=== PATIENT | male | born 1940 | race Caucasian/White ===

== ENCOUNTER 2019-03-11 15:59 | Inpatient (IN) ==
[2019-03-11] MEDS ORDERED: GLUCOSE 10 TABS/TUBE PO PRN (22:45)
[2019-03-11] MEDS ORDERED: GLUCAGON FOR INJ 1 MG VIAL SQ PRN (22:45)
[2019-03-11] MEDS ORDERED: GLUCOSE 40% GEL 15 GM TUBE PO PRN (22:45)
[2019-03-11] MEDS ORDERED: DEXTROSE 50% 50 ML SYRINGE IV PRN (22:45)
[2019-03-11] MEDS ORDERED: CARBOHYDRATES FOR HYPOGLYCEMIA PO PRN (22:45)
[2019-03-11] MEDS ORDERED: ONDANSETRON INJ 2 MG/ML 2 ML VIAL IV PRN (22:50)
[2019-03-11] MEDS ORDERED: ALBUT/IPRATROP 3MG/0.5MG NEB 3 ML VIAL NEB PRN (22:50)
[2019-03-11] MEDS ORDERED: ACETAMINOPHEN 325 MG TAB PO PRN (22:50)
[2019-03-12] MEDS: INSULIN ASPART 100 UNITS/ML 3 ML PEN SC SCH ×5 (00:14→21:11)
--- NOTE | 2019-03-12 01:30 | History & Physical Report ---
Date of Service Patient was seen and examined on March 11, 2019 this is a late entry (after midnight). March 12, 2019 Assessment & Plan (1) Thrombocytopenia: Given history of ITP and that he is not having significant bleeding, I held transfusion until further evaluation and recommendation from hematology. CBC in am. DVT prophylaxis = SCDs, No pharmacologic due to low platelets. (2) Hematuria: Monitor H&H (3) Type II diabetes mellitus: Continue usual Lantus dose Add sliding scale coverage. (4) Chronic ITP (idiopathic thrombocytopenia): Apparently had been lost to follow up and was recently evaluated or planned to be evaluated by Dr. Rivera. (5) Chronic indwelling Jacinto catheter: History of Present Illness 79 y/o male is a transfer from [facility] where he was seen due to hematuria in his chronic jacinto catheter in the face of ITP with platelet count of 7,000 then later 10,000. Hematuria has been noted by nursing at the nursing facility for 24 hours. The patient's vitals are stable. Apparently he has recently been established with Dr. Rivera, after being lost to follow up for ITP. HGB is 12.9. Primary Care Provider: Kris Hampton MD Allergies Allergy/AdvReac Type Severity Reaction Status Date / Time No Known Allergies Allergy Unverified 03/12/19 01:05 Past Med/Surg History Medical History COPD (chronic obstructive pulmonary disease) (Chronic) Chronic ITP (idiopathic thrombocytopenia) (Chronic) Cirrhosis of liver (Chronic) Compression fracture of L2 lumbar vertebra (Chronic) Depression (Chronic) Gastritis (Chronic) Hemiplegia affecting left nondominant side (Chronic) Type II diabetes mellitus (Chronic) Injury of cervical spine (Resolved) Social History Preferred Language: Yoruba Communication Ability: Impaired Welfare Administrator Required: No Beliefs That Will Affect Care: None Current Living Situation: Skilled Nursing Feels Safe at Home: Yes Safety Concerns: Feels Safe At This Time Smoking Status: Former smoker Hx Alcohol Use: No Hx Substance Use: No Review of Systems Review of Systems: NEEDS EDITING Constitutional- no fever; no weight loss Eyes- no acute visual changes ENT- no sinus drainage; no pharyngitis Pulmonary- no cough. + chronic wheezing. Cardiac- no chest pain, no palpitations, no orthopnea. GI- no nausea, no vomiting, no diarrhea, no melena, no hematochezia - As in HPI. Musculoskeletal- no arthralgias, no myalgias Derm- no rashes. Hematologic- + bruising. Lymphatics- no adenopathy Endocrine- no polyuria or polydipsia; no heat or cold intolerance Neuro- no headaches. Psych- no anxiety. Physical Exam Physical Exam: NEEDS EDITING General- adult male NAD. Head- atraumatic Eyes- PERRL, EOMI, anicteric ENT- oropharynx clear Neck- supple, no JVD, no adenopathy, no thyromegaly. Lungs- Mild exp wheezes b/l otherwise unremarkable. Heart- regular rhythm; no murmur, no gallop, no rub appreciated Abdomen- normal bowel sounds, soft, nontender. Extremities- no pretibial edema, no calf tenderness; peripheral pulses intact Neuro- alert, oriented x 2; PERRL, EOMI; no facial palsy; no dysarthria, dowel inspector II- XII grossly intact Skin- warm & dry Results & Data Vital Signs (Past 12 Hours) Vital Signs Temp Pulse Resp BP Pulse Ox 03/11/19 21:23 36.4 C L 84 20 137/69 99 Laboratory Results Lab results on paper from [facility] were reviewed. Please refer to patients hard chart for details. Code Status & VTE Plan VTE Prophylaxis Plan VTE Prophylaxis will be ordered: Yes PG Care Time/CCT Total # of Minutes Spent Total Time Spent: 45 Total Time Spent with Patient: Total time spent is greater than 50% in coordination of care (as documented) at patient's floor/unit and/or counseling patient:
[2019-03-12 07:33] LABS: Hematocrit (blood only) 32.4 % (42-52); Hemoglobin 11.6 g/dL (14.0-18.0); Mean Corpuscular Hemoglobin 32.3 pg (25-34); Mean Corpuscular Hgb Conc 35.8 g/dL (32-36); Mean Corpuscular Volume 90.3 fL (80-100); Platelet Count 9 K/uL (130-400); RDW Coefficient of Variation 14.9 % (11.5-14.5); RDW Standard Deviation 49.9 fL (36.4-46.3); Red Blood Count 3.59 M/uL (4.7-6.1); White Blood Count 3.24 K/uL (4.8-10.8)
[2019-03-12 07:34] LABS: Platelet Estimate SIGNIFIC DECREASED (Normal)
[2019-03-12 07:36] LABS: BUN Creatinine Ratio 24.1 (10-20); Calcium 8.2 mg/dl (8.5-10.1); Creatinine Clr Calc Pharmacy 107.7 ml/min; Est GFR (African American) 117.6; Est GFR (Non-African American) 101.4; Potassium 4.5 mmol/L (3.5-5.1)
[2019-03-12 08:06] LABS: Estimated Average Glucose 154 mg/dl
[2019-03-12] MEDS: SERTRALINE HCL 50 MG TABLET PO SCH (08:49)
[2019-03-12] MEDS: INSULIN GLARGINE SOLOSTAR 100 UNITS/ML 3 ML PEN SQ SCH (08:50)
--- NOTE | 2019-03-12 11:46 | Consultation Report ---
DATE OF CONSULTATION: 03/12/2019 REASON FOR CONSULTATION: Thrombocytopenia. HISTORY OF PRESENT ILLNESS: Ramos Darnell is a 79-year-old gentleman I actually just met as an outpatient at [facility] for cytopenias. Mr. Darnell resides in personal residential with chronic medical problems, developed hematuria and was subsequently sent to [facility] initially and transferred to [facility] for further evaluation. He was noted to have a platelet count of 10,000. I am familiar with Mr. Darnell seen in original consultation on 03/05/2019. Mr. Darnell himself is not the best informant and thus relied strictly on clinical notes as well as the healthcare worker who accompanied Mr. Darnell to clinic. Apparently, this gentleman has a history of hemiplegia as well as indwelling Rosales catheter. His medical record states he suffers from cirrhosis of the liver. There is also indication that he probably has a diagnosis of immune thrombocytopenia as he has been treated with weekly infusions by Dr. Ambrose Quinn, rd project manager, [facility]. Apparently, Mr. Darnell has not been the most compliant patient and thus Dr. Quinn no longer treats Ramos. I unfortunately had very little information regarding his hematologic history and presently have my staff working on obtaining medical records. Mr. Darnell apparently was recently discharged from [facility] as well. 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 CURRENT MEDICATIONS: Include Corgard 20 mg 1/2 tablet p.o. every day, metformin 1000 mg p.o. b.i.d., milk of magnesia p.r.n., Dulcolax p.r.n., Toujeo SoloStar insulin 38 units q.a.m., ranitidine 150 mg p.o. q.12 hours, Tylenol 650 mg p.r.n. ALLERGIES: No known drug allergies. SOCIAL HISTORY: Currently resides in a personal residential. He was heavy drinker in his youth, but no longer drinks, discontinued his habit several decades ago. FAMILY HISTORY: Unobtainable. REVIEW OF SYSTEMS: Again, unobtainable because of this gentleman's mental status. PHYSICAL EXAMINATION: GENERAL: A very pleasant 79-year-old gentleman in no acute distress. VITAL SIGNS: Temperature 36.8, pulse 64, respiratory rate 18, blood pressure 110/68. SKIN: Without rash or lesion. HEENT: Head is atraumatic, normocephalic. Eyes: PERRLA, EOMI. Sclerae nonicteric. Nares patent without rhinorrhea or discharge. Throat is clear. He is edentulous. No buccal mucosal lesions or ulcerations. NECK: Supple without JVD or thyromegaly. LYMPH: No cervical, supraclavicular palpable nodes. HEART: Regular rate and rhythm. No clicks, rubs, murmurs or gallops. LUNGS: Clear to auscultation bilaterally. ABDOMEN: Soft, nontender, nondistended, without palpable hepatosplenomegaly. EXTREMITIES: No clubbing, cyanosis or edema. NEUROLOGICAL: Grossly intact. LABORATORY DATA: WBC count 30-40, hemoglobin 11.6, platelet count 9,000. Sodium 143, potassium 4.5, chloride 111, carbon dioxide 28, BUN 13, creatinine 0.52. IMPRESSION: 1. 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 2. Hematuria. 3. Type 2 diabetes mellitus. 4. Chronic indwelling Rosales catheter. PLAN: Mr. Darnell is a pleasant 79-year-old gentleman who was admitted to [facility] last night with subacute onset hematuria. Apparently, this gentleman had previous relationship with Dr. Ambrose Quinn, rd project manager at [place]. Unfortunately, I did not have pertinent information when he was seen in consultation on 03/05/2019. My staff is in the midst of obtaining appropriate information to figure out what Dr. Quinn had been treating Mr. Darnell for and with specifically. I suspect it may be the subQ thrombopoietin agent Nplate, which is chronically administered for refractory ITP. Steroids would not be a good option with this gentleman's diabetes mellitus. Acutely, IVIG 1 gram per kilogram administered intravenously, is usually effective and transiently normalizing platelets. Transfusion in the setting of ITP is generally not helpful, but in the emergent situations of profuse bleeding is reasonable. This gentleman's hemoglobin is quite stable and thus would not pursue transfusion. Again, I will have both the nursing staff on and my staff were to obtain information from Dr. Quinn's office to clarify this gentleman's hematologic history. Thank you very much for allowing me to participate in his care. This gentleman has been seen by other hermatologists, most recently at [facility] in November 2018. Dr. Shah stated Mr. Darnell has previously received Rituxan, IVIG, and Decadron but refractory to all these agents. Recommended Bone marrow bx which was refused. Will seek petroleum terminal plant operator treatment option moving forward. [place]
[2019-03-12] MEDS ORDERED: DEXAMETHASONE SOD PHOSPHATE IV SCH (12:15)
[2019-03-12] MEDS: dexAMETHasone 4 MG TAB PO SCH (13:17)
[2019-03-12] MEDS: PANTOprazole 40 MG TAB PO SCH (13:17)
--- NOTE | 2019-03-12 20:02 | Hospitalist Progress Note ---
Date of Service March 12, 2019 Assessment & Plan (1) Thrombocytopenia: Severe, with platelet count of 9. This is in setting of active bleeding and pancytopenia. Appreciate Dr Reyes's consultation. We discussed his care in detail. He has apparently been a responder to platelet infusion in the past; thus will Tx 1 unit of apheresed platelets. We also discussed options for Rx of the ITP. Will give decadron 40mg PO daily x 4 days starting today. He ultimately will need a bone marrow bx as an outpatient. Repeat CBC in am. (2) Chronic ITP (idiopathic thrombocytopenia): Had been lost to follow up in the previous 1-[address] Reyes did some investigation and found he had seen 2 other providers outside of the [place] area. Regardless patient needs to be linked back in for regular follow-up and ongoing treatment. Will Tx 1 unit of platelets today. Start steroids as above. (3) Hematuria: Hb has dropped about 1.5 grams in the last week. He has gross hematuria in the setting of the low platelets. Given the active bleeding platelet transfusion is very reasonable. Hopefully bleeding will resolve once platelet count rises. Will recommend f/u post-discharge for consideration of cystoscopy. No signs/symptoms of UTI. (4) Acute blood loss anemia: 2nd to gross hematuria. Repeat CBC am. (5) Pancytopenia: Check TSH while here as hypothyroidism can cause pancytopenia. Recent b12/folate wnl. If indeed he has cirrhosis then liver disease can contribute to pancytopenia. Agree with Dr Reyes that in light of the severity of the platelet count he needs bone marrow bx to r/o other marrow-based malignancies, etc. CBC in am for stability. (6) Type II diabetes mellitus: Cont lantus Cont novolog These will need adjusting in light of high-dose decadron use (7) Chronic indwelling Jacinto catheter: reason? neurogenic bladder? other? need to investigate when the jacinto was last replaced (8) COPD (chronic obstructive pulmonary disease): extensive wheezing on exam c/w COPD but he denies pulmonary complaints steroids should help wheezing cont combivent really should be on controller agent (9) Cirrhosis: cause? currently compensated resume BB if blood pressure will allow (10) Left-sided weakness: by history due to prior cervical spine injury? (11) DVT prophylaxis: chemical means contraindicated SCDs for now in light of severity of thrombocytopenia, gross hematuria, etc - will change observation status to full admission I certify that the inpatient services were ordered in accordance with Medicare regulations governing the order. This includes certification that hospital inpatient services are reasonable and necessary and in the case of services not specified as inpatient-only under 42 CFR 419.22(n), that they are appropriately provided as inpatient services in accordance to with the 2-midnight benchmark under 43 CFR 412.3(e) Subjective patient's jacinto continues to have mild hematuria. he denies any complaints however. he does have cough. this is chronic. he is a former smoker. Review of Systems Constitutional: no fever and no chills Respiratory: no dyspnea Cardiovascular: no chest pain Gastrointestinal: no abdominal pain Physical Exam Constitutional: no acute distress coughing ENMT: external ear and nose normal, oropharynx normal Respiratory: no respiratory distress Auscultation: + wheezes (extensive); no crackles Cardiovascular: Rate/Rhythm: regular rate and regular rhythm Heart Sounds: normal S1 and normal S2; no murmur Vessels: posterior tibial pulses present and dorsalis pedis pulses present; no JVD Extremities: no edema Gastrointestinal (Abdomen): normal bowel sounds, soft, nontender, no hepatosplenomegaly Skin: petechiae of legs, arms, feet Psychiatric: A+Ox3, euthymic affect Genitourinary: gross hematuria present in jacinto Results & Data Vital Signs (Past 12 Hours) Vital Signs Temp Pulse Pulse Resp BP BP Pulse Ox 03/12/19 19:25 37 C 82 20 133/73 95 03/12/19 18:25 37 C 88 20 136/75 95 03/12/19 18:24 36.9 C 79 20 133/73 94 03/12/19 18:10 37.1 C 84 20 145/76 H 95 03/12/19 18:09 37 C 88 20 136/75 95 03/12/19 17:53 36.4 C L 85 20 130/71 03/12/19 15:25 37 C 68 18 130/65 96 Laboratory Results platelet count 9 Hb 11.6 WBC 3.2 Cr 0.5 PG Care Time/CCT Total # of Minutes Spent Total Time Spent with Patient: Total time spent is greater than 50% in coordination of care (as documented) at patient's floor/unit and/or counseling patient: (1) Hematuria Hematuria type: gross Qualified Code(s): R31.0 - Gross hematuria (2) Type II diabetes mellitus Diabetes mellitus usp insulin use: with usp use Diabetes mellitus complication status: without complication Qualified Code(s): E11.9 - Type 2 diabetes mellitus without complications; Z79.4 - terminal carman (current) use of insulin (3) COPD (chronic obstructive pulmonary disease) COPD type: unspecified COPD Qualified Code(s): J44.9 - Chronic obstructive pulmonary disease, unspecified (4) Cirrhosis Hepatic cirrhosis type: other cirrhosis Qualified Code(s): K74.69 - Other cirrhosis of liver
--- NOTE | 2019-03-12 20:48 | XRay Report ---
XR chest 2V routine CLINICAL HISTORY: 79 years-old Male presenting with bilateral wheezing. TECHNIQUE: Portable upright AP view of the chest was obtained. COMPARISON: None. FINDINGS: Atherosclerosis of the aortic arch. Cardiac silhouette normal in size. No focal opacity. No large eff usion or pneumothorax. Degenerative changes of the thoracic spine. Upper abdomen normal. IMPRESSION: 1. No acute cardiopulmonary disease. Electronically signed by: Tobin Friedman M.D. 03/12/2019 8:47 PM
[2019-03-12] MEDS: IPRATROPIUM BROMIDE/ALBUTEROL respimat INH INH SCH (21:11)
[2019-03-13 06:56] LABS: Hematocrit (blood only) 31.4 % (42-52); Hemoglobin 11.4 g/dL (14.0-18.0); Mean Corpuscular Hgb Conc 36.3 g/dL (32-36); Mean Corpuscular Volume 88.2 fL (80-100); Mean Platelet Volume 11.8 fL (7.4-10.4); Platelet Count 21 K/uL (130-400); Platelet Estimate SIGNIFIC DECREASED (Normal); RDW Coefficient of Variation 14.4 % (11.5-14.5); RDW Standard Deviation 47.2 fL (36.4-46.3); Red Blood Count 3.56 M/uL (4.7-6.1); White Blood Count 2.97 K/uL (4.8-10.8)
[2019-03-13 07:01] LABS: BUN Creatinine Ratio 33.2 (10-20); Calcium 8.4 mg/dl (8.5-10.1); Creatinine Clr Calc Pharmacy 94.9 ml/min; Est GFR (African American) 111.6; Est GFR (Non-African American) 96.3
[2019-03-13] MEDS: SERTRALINE HCL 50 MG TABLET PO SCH (08:16)
[2019-03-13] MEDS: dexAMETHasone 4 MG TAB PO SCH (08:16)
[2019-03-13] MEDS: PANTOprazole 40 MG TAB PO SCH (08:16)
[2019-03-13] MEDS: IPRATROPIUM BROMIDE/ALBUTEROL respimat INH INH SCH ×4 (08:18→20:20)
[2019-03-13] MEDS: INSULIN GLARGINE SOLOSTAR 100 UNITS/ML 3 ML PEN SQ SCH (08:19)
[2019-03-13] MEDS: INSULIN ASPART 100 UNITS/ML 3 ML PEN SC SCH ×4 (08:22→20:21)
--- NOTE | 2019-03-13 09:36 | Progress Note ---
DATE: 03/13/2019 DIAGNOSES: 1. 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 2. Hematuria. 3. Type 2 diabetes mellitus. 4. Chronic indwelling Rosales catheter. SUBJECTIVE: Ramos was seen at bedside this morning. Dr. Alvarez on my recommendation started him on high dose dexamethasone 40 mg p.o. daily for the next 4 days. Additionally, he received single donor platelets overnight. Platelet count presently measures 21,000. 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 Quinn and Dr. Michaels from the [facility]. He saw Dr. Michaels back in November, at which time the diagnosis was ITP and was treated empirically with rituximab, IVIG, and dexamethasone. Dr. Michaels stated, Mr. Darnell had transient response to dexamethasone. Nonetheless, long-term need to incorporate a better strategy as for the most part he has been refractory to these prior treatments. There is no further evidence of external hemorrhage. We will proceed with dexamethasone as prescribed. Mr. Darnell offers no complaints today. Nursing reports no overnight difficulties. OBJECTIVE GENERAL: A pleasant 79-year-old gentleman, answers questions appropriately, in no acute distress. VITAL SIGNS: Temperature 36.8, pulse 73, respiratory rate 20, blood pressure 115/63. SKIN: Without rash or lesion. No ecchymosis or petechiae noted. HEENT: Oral mucosa is clear. HEART: Regular rate and rhythm. LUNGS: Clear to auscultation bilaterally. ABDOMEN: Soft, nontender, nondistended. EXTREMITIES: No clubbing, cyanosis or edema. Pneumatics in place. NEUROLOGIC: Grossly intact. LABORATORY DATA: WBC count 2970, hemoglobin 11.4, platelet count 21,000. Sodium 138, potassium 4.0, chloride 106, carbon dioxide 25, BUN 20, creatinine 0.59. IMPRESSION: 1. 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 2. Hematuria. 3. Type 2 diabetes mellitus. 4. Chronic indwelling Rosales catheter. PLAN: Mr. Darnell is newly established at [facility], seen a couple of days prior to admission to [facility] with progressive thrombocytopenia. This gentleman has followed with hematology for several years at various locations, Dr. Ambrose Quinn at [place] and also Dr. Michaels at the [facility] in [facility] as late as November of this year. I was able to speak to Dr. Michaels over the phone who stated that Mr. Darnell is definitely noncompliant and has resisted that notion to undergo bone marrow biopsy and aspiration which is indicated considering his WBC count and hemoglobin are also decreased. It would appear though there is a component of immune-mediated thrombocytopenia and thus will push forward with oral dexamethasone to achieve remission. However, at some point, Mr. Darnell should undergo bone marrow biopsy and aspiration to rule out an underlying myelodysplasia. We will also need to consider long-term plan perhaps oral or subcutaneous thrombopoietin moving forward. We will continue to follow Mr. Darnell during his hospital stay and make sure outpatient followup is established.
--- NOTE | 2019-03-13 19:55 | Hospitalist Progress Note ---
Date of Service March 13, 2019 Assessment & Plan (1) Thrombocytopenia: Improved s/p 1 unit platelets yesterday. Platelet count modestly improved to 21 today. Gross hematuria has resolved. He is day #2 of 4 high-dose decadron 40mg daily. Appreciate Dr Reyes's consultation. He ultimately will need a bone marrow bx as an outpatient. Repeat CBC in am. (2) Chronic ITP (idiopathic thrombocytopenia): Had been lost to follow up in the previous 1-[address] Reyes did some investigation and found he had seen 2 other providers outside of the [place] area for his hematological issues. Regardless patient needs to be linked back in for regular follow-up and ongoing treatment. s/p 1 unit of platelets yesterday. Count is now 21, up from 9. Cont steroids. (3) Hematuria: He has had gross hematuria in the setting of the low platelets. Hematuria did resolve overnight and urine is clear today. Will recommend f/u post-discharge for consideration of cystoscopy. No signs/symptoms of UTI. (4) Acute blood loss anemia: 2nd to gross hematuria. H/H have leveled off. CBC am. (5) Pancytopenia: Check TSH in am as hypothyroidism can cause pancytopenia. Recent b12/folate wnl. If indeed he has cirrhosis then liver disease can contribute to pancytopenia. Agree with Dr Reyes that in light of the severity of the platelet count he needs bone marrow bx to r/o other marrow-based malignancies, etc. CBC in am for stability. (6) Type II diabetes mellitus: uncontrolled due to high-dose steroid use Cont lantus but add HS dose of 10 units Cont novolog but adjust correction factor and carb ratio for tighter control (7) Chronic indwelling Jacinto catheter: reason? neurogenic bladder? other? need to investigate when the jacinto was last replaced would replace jacinto once platelet count is much higher (higher risk of complica tions with low counts) (8) COPD (chronic obstructive pulmonary disease): cont combivent really should be on controller agent - will likely add advair BID (9) Cirrhosis: cause? currently compensated resume BB if blood pressure will allow (10) Left-sided weakness: by history likely due to prior cervical spine injury (fell off ladder 1 year ago, by report, requiring hospitalization at [facility]) (11) DVT prophylaxis: chemical means contraindicated SCDs for now attempted to call pt's at # listed in chair - no answer, could not leave message progressing will return to [facility] at d/c Subjective patient w/o complaints today. reports he was hospitalized at [facility] last year after having fallen off a ladder. had some form of neck injury and landed in their trauma unit. he did not need surgery. he has had progressive weakness since that fall and has not walked in 6 months or so. his left arm is quite weak since the injury. gross hematuria has resolved. Review of Systems Constitutional: no fever Respiratory: + cough and + wheezing; no dyspnea Cardiovascular: no chest pain, no orthopnea and no paroxysmal nocturnal dyspnea Gastrointestinal: no abdominal pain, no nausea and no vomiting Physical Exam Constitutional: no acute distress ENMT: external ear and nose normal, oropharynx normal Respiratory: no respiratory distress Auscultation: + wheezes (modestly improved from yesterday's exam); no crackles Cardiovascular: Rate/Rhythm: regular rate and regular rhythm Heart Sounds: normal S1 and normal S2; no murmur Vessels: posterior tibial pulses present and dorsalis pedis pulses present; no JVD Extremities: no edema Gastrointestinal (Abdomen): normal bowel sounds, soft, nontender, no hepatosplenomegaly Skin: petechaie on feet, arms, legs Neurologic: weakness left arm with muscle atrophy of left arm Psychiatric: A+Ox3, euthymic affect Results & Data Vital Signs (Past 12 Hours) Vital Signs Temp Pulse Resp BP 03/13/19 15:11 36.8 C 71 18 108/57 L Laboratory Results Laboratory Results - last 24 hr 03/12/19 03/13/19 03/13/19 20:50 06:04 06:04 WBC 2.97 L RBC 3.56 L Hgb 11.4 L Hct 31.4 L MCV 88.2 MCH 32.0 MCHC 36.3 H RDW Std Deviation 47.2 H RDW Coeff of Mary Anne 14.4 Plt Count 21 L* D MPV 11.8 H Platelet Estimate SIGNIFIC DECREASED Sodium 138 Potassium 4.0 Chloride 106 Carbon Dioxide 25 Anion Gap 7.0 BUN 20 H D Creatinine 0.59 L Est Cr Clr Drug Dosing 94.9 Est GFR ( Amer) 111.6 Est GFR (Non-Af Amer) 96.3 BUN/Creatinine Ratio 33.2 H Glucose 174 H POC Glucose 247 H Calcium 8.4 L 03/13/19 03/13/19 03/13/19 07:54 11:59 16:50 WBC RBC Hgb Hct MCV MCH MCHC RDW Std Deviation RDW Coeff of Mary Anne Plt Count MPV Platelet Estimate Sodium Potassium Chloride Carbon Dioxide Anion Gap BUN Creatinine Est Cr Clr Drug Dosing Est GFR ( Amer) Est GFR (Non-Af Amer) BUN/Creatinine Ratio Glucose POC Glucose 179 H 205 H 228 H Calcium PG Care Time/CCT Total # of Minutes Spent Total Time Spent with Patient: Total time spent is greater than 50% in coordination of care (as documented) at patient's floor/unit and/or counseling patient: (1) Hematuria Hematuria type: gross Qualified Code(s): R31.0 - Gross hematuria (2) Type II diabetes mellitus Diabetes mellitus complication status: without complication Diabetes mellitus usp insulin use: with usp use Qualified Code(s): E11.9 - Type 2 diabetes mellitus without complications; Z79.4 - terminal press operator (current) use of insulin (3) Cirrhosis Hepatic cirrhosis type: other cirrhosis Qualified Code(s): K74.69 - Other cirrhosis of liver (4) COPD (chronic obstructive pulmonary disease) COPD type: unspecified COPD Qualified Code(s): J44.9 - Chronic obstructive pulmonary disease, unspecified
[2019-03-13] MEDS: INSULIN GLARGINE SOLOSTAR 100 UNITS/ML 3 ML PEN SC SCH (20:20)
[2019-03-13] MEDS: FLUTICASONE/SALMETEROL 250/50 (ADVAIR) 14 PUFF/1 INHALER INH SCH (21:56)
[2019-03-14 06:33] LABS: BUN Creatinine Ratio 41.5 (10-20); Calcium 8.4 mg/dl (8.5-10.1); Creatinine Clr Calc Pharmacy 88.9 ml/min; Est GFR (African American) 108.6; Est GFR (Non-African American) 93.7
[2019-03-14 06:39] LABS: Hematocrit (blood only) 31.6 % (42-52); Hemoglobin 11.4 g/dL (14.0-18.0); Mean Corpuscular Hemoglobin 32.2 pg (25-34); Mean Corpuscular Hgb Conc 36.1 g/dL (32-36); Mean Corpuscular Volume 89.3 fL (80-100); Platelet Count 23 K/uL (130-400); RDW Coefficient of Variation 14.7 % (11.5-14.5); RDW Standard Deviation 48.3 fL (36.4-46.3); Red Blood Count 3.54 M/uL (4.7-6.1); White Blood Count 6.32 K/uL (4.8-10.8)
[2019-03-14 06:41] LABS: Immature Granulocytes # (auto) 0.01 K/uL (0.00-0.02); Immature Granulocytes % (auto) 0.2 %; Lymphocytes # (auto) 0.39 K/uL (1.2-3.4); Lymphocytes % (auto) 6.2 %; Monocytes % (auto) 4.7 %; Neutrophils # (auto) 5.62 K/uL (1.4-6.5); Neutrophils % (auto) 88.9 %; Platelet Estimate SIGNIFIC DECREASED (Normal)
[2019-03-14 06:43] LABS: Thyroid Stimulating Hormone 0.413 uIu/ml (0.300-4.500)
[2019-03-14] MEDS: dexAMETHasone 4 MG TAB PO SCH (08:25)
[2019-03-14] MEDS: IPRATROPIUM BROMIDE/ALBUTEROL respimat INH INH SCH ×4 (08:25→20:52)
[2019-03-14] MEDS: PANTOprazole 40 MG TAB PO SCH (08:25)
[2019-03-14] MEDS: FLUTICASONE/SALMETEROL 250/50 (ADVAIR) 14 PUFF/1 INHALER INH SCH ×2 (08:26→20:52)
[2019-03-14] MEDS: SERTRALINE HCL 50 MG TABLET PO SCH (08:26)
[2019-03-14] MEDS: INSULIN ASPART 100 UNITS/ML 3 ML PEN SC SCH ×4 (08:29→20:53)
[2019-03-14] MEDS: INSULIN GLARGINE SOLOSTAR 100 UNITS/ML 3 ML PEN SQ SCH (08:30)
--- NOTE | 2019-03-14 08:37 | Progress Note ---
DATE: 03/14/2019 DIAGNOSES: 1. 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 2. Hematuria. 3. Type 2 diabetes mellitus. 4. Chronic indwelling Rosales catheter. SUBJECTIVE: Ramos was once again seen at bedside this morning. He is now on day #3 high-dose dexamethasone. He had previously received single donor platelets within the past 24 hours. At this point, would continue steroids as recommended. Clearly at some point, Mr. Darnell will need to undergo bone marrow biopsy and aspiration, but would prefer to wait until he is an outpatient. Mr. Darnell himself offers no complaints today. Nursing reports no overnight difficulties. OBJECTIVE: GENERAL: A very pleasant 79-year-old gentleman in no acute distress. VITAL SIGNS: Temperature 36.3, pulse 61, respiratory rate 18, blood pressure 133/73. SKIN: Without rash or lesion. HEENT: Oral mucosa without erythema or ulceration. HEART: Regular rate and rhythm. LUNGS: Clear to auscultation bilaterally. ABDOMEN: Soft, nontender, nondistended. EXTREMITIES: No clubbing, cyanosis or edema. NEUROLOGIC: Grossly intact as compared to his baseline. LABORATORY DATA: WBC count 6320, hemoglobin 11.4, platelet count 23,000. Sodium 138, potassium 4.0, chloride 107, carbon dioxide 24, BUN 26, creatinine 0.63. IMPRESSION: 1. 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 2. Hematuria. 3. Type 2 diabetes mellitus. 4. Chronic indwelling Rosales catheter. PLAN: Mr. Darnell is now on his third day of high-dose dexamethasone. His platelet count has remained relatively stable, which is a good sign. However, dexamethasone will only be a temporary fix. Long-term, I may initiate subcutaneous or p.o. thrombopoietin. Of the 2 subcu administration may be a better option because of compliance issues with Mr. Darnell. Additionally, his WBCs and hemoglobin suggest he may have an intrinsic bone marrow issue such as myelodysplasia and thus a biopsy and aspiration should be done sometime in the future. I would prefer not to do it in the hospital quite frankly and will make arrangements to have him seen in the office shortly after discharge. Agree with medical management otherwise.
--- NOTE | 2019-03-14 20:02 | Hospitalist Progress Note ---
Date of Service March 14, 2019 Assessment & Plan (1) Thrombocytopenia: Still low but stable. s/p 1 unit platelets this admission. Gross hematuria has resolved. He is day #3 of 4 high-dose decadron 40mg daily. Appreciate Dr Reyes's consultation. He ultimately will need a bone marrow bx as an outpatient. Repeat CBC in am. (2) Chronic ITP (idiopathic thrombocytopenia): Had been lost to follow up in the previous 1-[address] Reyes did some investigation and found he had seen 2 other providers outside of the [place] area for his hematological issues. Regardless patient needs to be linked back in for regular follow-up and ongoing treatment. s/p 1 unit of platelets this admit. Cont steroids. CBC am. (3) Hematuria: He had gross hematuria in the setting of the low platelets. Hematuria resolved. Will recommend f/u post-discharge for consideration of cystoscopy. No signs/symptoms of UTI. (4) Acute blood loss anemia: 2nd to gross hematuria. H/H have leveled off. CBC am for stability. (5) Pancytopenia: Recent b12/folate wnl. TSH wnl. If indeed he has cirrhosis then liver disease can contribute to pancytopenia. Agree with Dr Reyes that in light of the severity of the platelet count he needs bone marrow bx to r/o other marrow-based malignancies, etc. CBC in am for stability. (6) Type II diabetes mellitus: uncontrolled due to high-dose steroid use but improving Cont lantus Cont novolog (7) Chronic indwelling Jacinto catheter: suspect due to neurogenic bladder the jacinto was last replaced at [facility] on 02/25/19 (8) COPD (chronic obstructive pulmonary disease): cont combivent cont advair BID (9) Cirrhosis: cause? currently compensated resume BB if blood pressure will allow pt reports he was dx in the last year- due to SEGURA? (10) Left-sided weakness: by history likely due to prior cervical spine injury (fell off ladder 1 year ago, by report, requiring hospitalization at [facility]) (11) DVT prophylaxis: chemical means contraindicated SCDs for now attempted to call pt's at # listed in chair - no answer, could not leave message attempted on 03/13 and 03/14 progressing will return to [facility] at d/c on 03/15 Subjective patient w/o complaints. eating well. jacinto w/o hematuria. we called April zuniga on 02/25 at [facility]. no issues per staff. Review of Systems Constitutional: no fever Respiratory: + cough; no dyspnea Cardiovascular: no chest pain Gastrointestinal: no abdominal pain, no nausea and no vomiting Physical Exam Constitutional: no acute distress ENMT: external ear and nose normal, oropharynx normal Respiratory: no respiratory distress Auscultation: + wheezes; no crackles Cardiovascular: Rate/Rhythm: regular rate and regular rhythm Heart Sounds: normal S1 and normal S2; no murmur Vessels: posterior tibial pulses present and dorsalis pedis pulses present; no JVD Extremities: no edema Gastrointestinal (Abdomen): normal bowel sounds, soft, nontender, no hepatosplenomegaly Skin: petechaie unchanged feet, legs, etc Neurologic: left sided weakness - left arm >left leg (baseline) Psychiatric: A+Ox3, euthymic affect Results & Data Vital Signs (Past 12 Hours) Vital Signs Temp Pulse Resp BP BP Pulse Ox 03/14/19 19:03 36.8 C 62 18 123/66 90 03/14/19 15:00 36.8 C 70 20 128/63 91 Laboratory Results Laboratory Results - last 24 hr 03/14/19 03/14/19 03/14/19 05:29 05:29 07:52 WBC 6.32 RBC 3.54 L Hgb 11.4 L Hct 31.6 L MCV 89.3 MCH 32.2 MCHC 36.1 H RDW Std Deviation 48.3 H RDW Coeff of Mary Anne 14.7 H Plt Count 23 L* MPV 12.0 H Immature Gran % (Auto) 0.2 Neut % (Auto) 88.9 Lymph % (Auto) 6.2 Carson % (Auto) 4.7 Eos % (Auto) 0.0 Baso % (Auto) 0.0 Immature Gran # (Auto) 0.01 Neut # (Auto) 5.62 Lymph # (Auto) 0.39 L Carson # (Auto) 0.30 Eos # (Auto) 0.00 Baso # (Auto) 0.00 Platelet Estimate SIGNIFIC DECREASED Sodium 138 Potassium 4.0 Chloride 107 Carbon Dioxide 24 Anion Gap 7.0 BUN 26 H Creatinine 0.63 Est Cr Clr Drug Dosing 88.9 Est GFR ( Amer) 108.6 Est GFR (Non-Af Amer) 93.7 BUN/Creatinine Ratio 41.5 H Glucose 160 H POC Glucose 168 H Calcium 8.4 L TSH 0.413 03/14/19 03/14/19 11:50 16:39 WBC RBC Hgb Hct MCV MCH MCHC RDW Std Deviation RDW Coeff of Mary Anne Plt Count MPV Immature Gran % (Auto) Neut % (Auto) Lymph % (Auto) Carson % (Auto) Eos % (Auto) Baso % (Auto) Immature Gran # (Auto) Neut # (Auto) Lymph # (Auto) Carson # (Auto) Eos # (Auto) Baso # (Auto) Platelet Estimate Sodium Potassium Chloride Carbon Dioxide Anion Gap BUN Creatinine Est Cr Clr Drug Dosing Est GFR ( Amer) Est GFR (Non-Af Amer) BUN/Creatinine Ratio Glucose POC Glucose 166 H 234 H Calcium TSH PG Care Time/CCT Total # of Minutes Spent Total Time Spent with Patient: Total time spent is greater than 50% in coordination of care (as documented) at patient's floor/unit and/or counseling patient: (1) Hematuria Hematuria type: gross Qualified Code(s): R31.0 - Gross hematuria (2) Type II diabetes mellitus Diabetes mellitus complication status: without complication Diabetes mellitus terminal press operator insulin use: with group home use Qualified Code(s): E11.9 - Type 2 diabetes mellitus without complications; Z79.4 - tank terminal gauger (current) use of insulin (3) Cirrhosis Hepatic cirrhosis type: other cirrhosis Qualified Code(s): K74.69 - Other cirrhosis of liver (4) COPD (chronic obstructive pulmonary disease) COPD type: unspecified COPD Qualified Code(s): J44.9 - Chronic obstructive pulmonary disease, unspecified
[2019-03-14] MEDS: INSULIN GLARGINE SOLOSTAR 100 UNITS/ML 3 ML PEN SC SCH (20:52)
[2019-03-15 07:24] LABS: Hematocrit (blood only) 32.6 % (42-52); Hemoglobin 11.8 g/dL (14.0-18.0); Mean Corpuscular Hemoglobin 32.3 pg (25-34); Mean Corpuscular Hgb Conc 36.2 g/dL (32-36); Mean Corpuscular Volume 89.3 fL (80-100); Mean Platelet Volume 11.8 fL (7.4-10.4); Platelet Count 21 K/uL (130-400); Platelet Estimate SIGNIFIC DECREASED (Normal); RDW Coefficient of Variation 14.6 % (11.5-14.5); RDW Standard Deviation 47.8 fL (36.4-46.3); Red Blood Count 3.65 M/uL (4.7-6.1); White Blood Count 5.78 K/uL (4.8-10.8)
[2019-03-15 07:27] LABS: BUN Creatinine Ratio 38.1 (10-20); Calcium 8.3 mg/dl (8.5-10.1); Creatinine Clr Calc Pharmacy 83.6 ml/min; Est GFR (African American) 105.9; Est GFR (Non-African American) 91.4
[2019-03-15] MEDS: INSULIN ASPART 100 UNITS/ML 3 ML PEN SC SCH ×4 (08:31→20:59)
[2019-03-15] MEDS: INSULIN GLARGINE SOLOSTAR 100 UNITS/ML 3 ML PEN SQ SCH (08:33)
[2019-03-15] MEDS: dexAMETHasone 4 MG TAB PO SCH (08:34)
[2019-03-15] MEDS: IPRATROPIUM BROMIDE/ALBUTEROL respimat INH INH SCH ×4 (08:34→20:58)
[2019-03-15] MEDS: FLUTICASONE/SALMETEROL 250/50 (ADVAIR) 14 PUFF/1 INHALER INH SCH ×2 (08:34→20:58)
[2019-03-15] MEDS: PANTOprazole 40 MG TAB PO SCH (08:35)
[2019-03-15] MEDS: SERTRALINE HCL 50 MG TABLET PO SCH (08:35)
--- NOTE | 2019-03-15 09:26 | Progress Note ---
DATE: 03/15/2019 HEMATOLOGIC PROGRESS NOTE DIAGNOSES: 1. 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 2. Leukopenia/anemia. 3. Hematuria. 4. Type 2 diabetes mellitus. 5. Chronic indwelling Rosales catheter. SUBJECTIVE: Ramos was seen and examined at bedside this morning. He is on his final day of high-dose dexamethasone. Unfortunately, while we have made gains on his WBCs, his platelets remain right around 20,000. As I previously stated, Mr. Darnell will need a bone marrow biopsy and aspiration as I believe he may suffer from an underlying myelodysplasia. I have conveyed this to him, but I see no reason why [facility] cannot [facility] and followup as an outpatient. He offers no overt complaints. Nursing reports no overnight difficulties. PHYSICAL EXAMINATION: GENERAL: Pleasant 79-year-old gentleman in no acute distress. VITAL SIGNS: Temperature 36.7, pulse 71, respiratory rate 16, blood pressure 114/51. SKIN: Warm, dry, noncyanotic, no petechiae or ecchymosis. HEENT: Oral mucosa without erythema or ulceration. HEART: Regular rate and rhythm. LUNGS: Clear to auscultation bilaterally. ABDOMEN: Soft, nontender, nondistended. EXTREMITIES: No clubbing, cyanosis or edema. NEUROLOGICAL: Per his current baseline. LABORATORY DATA: WBC count 5780, hemoglobin 11.8, platelet count 21,000. Sodium 139, potassium 4, chloride 106, carbon dioxide 26, creatinine 0.67, BUN 25. IMPRESSION: 1. 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 2. Leukopenia/anemia. 3. Type 2 diabetes mellitus. 4. Hematuria. 5. Chronic indwelling Rosales catheter. PLAN: I suspect Mr. Darnell may be discharged today. I am comfortable with peripheral blood counts every 3 days or so, arrange for outpatient followup and will plan for bone marrow biopsy and aspiration. I explained this on numerous occasions with Mr. Darnell. He has been known to be noncompliant in the past and may back out of the procedure nonetheless. Again, he will complete his final course of corticosteroids, which effectively increased his WBC count, but unfortunately did not raise his platelet count to any great extent. There are no overt signs of external hemorrhage. He is hemodynamically stable and feels comfortable with having as proceed to discharge. If there are any questions or concerns, feel free to contact me by phone.
--- NOTE | 2019-03-15 14:13 | CT Scan Report ---
CT abd pelvis wo con CLINICAL HISTORY: 79 years-old Male presenting with gross hematuria; eval bladder tumor, stones, etc. TECHNIQUE: Multidetector CT of the abdomen and pelvis was performed without the use of intravenous co ntrast. IV contrast: None. One or more dose lowering techniques were used consistent with the princip les of ALARA (as low as reasonably achievable), including automatic exposure control, mA or kV adjust ment to individual patient size, and/or use of iterative reconstruction. COMPARISON: None. CT DOSE (mGy.cm): The estimated cumulative dose is 574.72 mGy.cm. FINDINGS: Maintenance Custodian topogram: Unremarkable. Lung bases: Aortic valve calcification. Normal heart size. Trace left pleural effusion. Left basilar atelectasis, possibly passive atelectasis. Liver: Nodular morphology of the liver suggesting underlying fibrosis/cirrhosis. Normal density. Biliary: No gross biliary ductal dilatation allowing for noncontrast technique. Normal gallbladder. Pancreas: Possible cystic lesion in the head of the pancreas. Overall mild parenchymal atrophy. Spleen: Normal noncontrast appearance. Exclusion of the most superior portion of the spleen. Adrenal glands: Normal noncontrast appearance. Kidneys and ureters: Layering calculi in the right renal pelvis. Normal noncontrast appearance of the renal parenchyma. A punctate nonobstructing left renal calculus may also be present in the interpola r region. No hydroureteronephrosis. Ureters nondistended. No ureteral calculi are apparent. Bladder: Rosales catheter decompresses the urinary bladder. Gas within the bladder lumen related to cat heterization. Multiple bladder calculi are present. Pelvic organs: Normal noncontrast appearance. Bowel: Marked distention of the rectum with a prominent focal stool ball. Mild rectal wall thickening and mild perirectal fat infiltration. A lesser degree of stool burden is noted throughout the remain angélica of the colon. The appendix is normal. No bowel obstruction. He sees noted in distal small bowel w ithout evidence of bowel obstruction possibly indicating delayed transit or bacterial overgrowth. Peritoneal cavity: Trace fluid in the superior pelvis. There is also trace areas hepatic fluid. No fr ee intraperitoneal gas. Lymph nodes: No gross lymphadenopathy allowing for noncontrast technique. Vasculature: Atherosclerosis of the normal caliber abdominal aorta. Abdominal wall: Mild body wall edema. Musculoskeletal: Degenerative changes of the spine. Osteopenia. Moderate compression deformity of L1 is age indeterminate. IMPRESSION: 1. Urinary bladder decompressed with a Rosales catheter. Multiple bladder calculi. These could account for the presence of hematuria. Evaluation for bladder neoplasm cannot be made. 2. Multiple layering nonobstructing calculi in the right renal pelvis and suspected punctate nonobst ructing left renal calculus. 3. No hydroureteronephrosis. 4. Suspected cirrhosis. 5. Stercoral colitis. Disimpaction to be considered. 6. Age-indeterminate moderate compression fracture of L1. Correlate with point tenderness. 7. Trace left pleural effusion and left basilar atelectasis. Electronically signed by: Tobin Friedman M.D. 03/15/2019 2:12 PM
[2019-03-15] MEDS ORDERED: bisacodyL 10 MG SUPP PR STA (15:19)
[2019-03-15] MEDS: AMOXICILLIN 500 MG CAP PO SCH (17:11)
[2019-03-15] MEDS: INSULIN GLARGINE SOLOSTAR 100 UNITS/ML 3 ML PEN SC SCH (20:58)
--- NOTE | 2019-03-15 21:03 | Hospitalist Progress Note ---
Date of Service March 15, 2019 Assessment & Plan (1) Thrombocytopenia: Level has been low 20s x 3 days. s/p 1 unit platelets this admission. Gross hematuria had resolved now returned. He is day #4 of 4 high-dose decadron 40mg daily. Appreciate Dr Reyes's consultation. He ultimately will need a bone marrow bx as an outpatient. I spoke with Dr Reyes today re: gross hematuria. Since it has recurred, and in light of ongoing severe thrombocytopenia, we both collectively agreed Mr Darnell should remain hospitalized. If bleeding was to worsen then another transfusion of platelets would be next step. Repeat CBC am. (2) Enterococcus UTI: difficult to know if he is truly "symptomatic". however, in light of hematuria, bladder stones, etc he easily could be infected. thus, will Rx with amox 500mg TID x 7-10 days starting today. this would be considered a WILLIS-CATHETER associated UTI (complicated UTI). (3) Bladder stones: CT abd/pelvis obtained today due to recurrent nature of his gross hemat uria. this showed several kidney stones (none of which are obstructing) and several bladder stones. the presence of the latter in the setting of severely low platelets and possible UTI will make the hematuria issue an ongoing one. poor candidate for Rx of stones. consider urology consult if bleeding was to worsen. at minimum will refer to urology as outpatient. (4) Chronic ITP (idiopathic thrombocytopenia): Had been lost to follow up in the previous 1-[address] Reyes did some investigation and found he had seen 2 other providers outside of the [place] area for his hematological issues. Regardless patient needs to be linked back in for regular follow-up and ongoing treatment. s/p 1 unit of platelets this admit. Cont steroids, day #4 / 4 today. CBC am. see discussion above. (5) Hematuria: He has had gross hematuria in the setting of the low platelets. Hematuria resolved then recurred. See above discussion re: stones. At minimum will recommend f/u post-discharge. (6) Acute blood loss anemia: 2nd to gross hematuria. H/H stable. CBC am for stability once again. (7) Pancytopenia: Recent b12/folate wnl. TSH wnl. Pt has cirrhosis which can contribute to pancytopenia. Agree with Dr Reyes that in light of the severity of the platelet count he needs bone marrow bx to r/o other marrow-based malignancies, etc. CBC in am for stability. (8) Type II diabetes mellitus: control improved and acceptable BSGs should improve now that steroids are complete Cont lantus Cont novolog (9) Chronic indwelling Willis catheter: suspect due to neurogenic bladder the willis [facility] (10) COPD (chronic obstructive pulmonary disease): cont combivent cont advair BID (11) Cirrhosis: cause? currently compensated resume BB if blood pressure will allow pt reports he was dx in the last year- due to SEGURA? CT abd/pelvis with cirrhotic appearing liver (12) Left-sided weakness: by history likely due to prior cervical spine injury (fell off ladder 1 year ago, by repor t, requiring hospitalization at [facility]) (13) Kidney stones: as seen on CT today nonobstructing no Rx needed at this time see discussion above re: bladder stones (14) DVT prophylaxis: chemical means contraindicated SCDs for now attempted to call pt's at # listed in chair - no answer, could not leave message attempted on 03/13 and 03/14 progressing will return to [facility] at d/c would keep in hospital until no bleeding for at least 24 hours Subjective this am, by report, urine was clear. by the time I saw patient, which was late AM, the urine was grossly bloody again. despite such pt had no complaints of suprapubic pain, abd pain, loss of appetite, etc. seen by speech - bedside swallow was intact. no new issues. we received a urine cx result from [facility] --- this showed enterococcus, >[id number] CFU, sensitive to PCN Review of Systems Constitutional: no fever, no chills, no fatigue and no anorexia Respiratory: + cough Cardiovascular: no chest pain and no dyspnea at rest Gastrointestinal: no nausea and no vomiting Physical Exam Constitutional: no acute distress ENMT: external ear and nose normal, oropharynx normal Respiratory: + cough; no respiratory distress Auscultation: + wheezes; no crackles Cardiovascular: Rate/Rhythm: regular rate and regular rhythm Heart Sounds: normal S1 and normal S2; no murmur Vessels: posterior tibial pulses present and dorsalis pedis pulses present; no JVD Extremities: no edema Gastrointestinal (Abdomen): normal bowel sounds, soft, nontender, no hepatosplenomegaly Psychiatric: A+Ox3, euthymic affect Genitourinary: willis in place -- bloody urine grossly Results & Data Vital Signs (Past 12 Hours) Vital Signs Temp Pulse Resp BP Pulse Ox 03/15/19 15:49 36.8 C 76 17 113/57 L 96 Laboratory Results Laboratory Results - last 24 hr 03/15/19 03/15/19 03/15/19 06:44 06:44 07:57 WBC 5.78 RBC 3.65 L Hgb 11.8 L Hct 32.6 L MCV 89.3 MCH 32.3 MCHC 36.2 H RDW Std Deviation 47.8 H RDW Coeff of Mary Anne 14.6 H Plt Count 21 L* MPV 11.8 H Platelet Estimate SIGNIFIC DECREASED Sodium 139 Potassium 4.0 Chloride 106 Carbon Dioxide 26 Anion Gap 7.0 BUN 25 H Creatinine 0.67 Est Cr Clr Drug Dosing 83.6 Est GFR ( Amer) 105.9 Est GFR (Non-Af Amer) 91.4 BUN/Creatinine Ratio 38.1 H Glucose 143 H POC Glucose 137 H Calcium 8.3 L 03/15/19 03/15/19 03/15/19 11:50 16:54 20:19 WBC RBC Hgb Hct MCV MCH MCHC RDW Std Deviation RDW Coeff of Mary Anne Plt Count MPV Platelet Estimate Sodium Potassium Chloride Carbon Dioxide Anion Gap BUN Creatinine Est Cr Clr Drug Dosing Est GFR ( Amer) Est GFR (Non-Af Amer) BUN/Creatinine Ratio Glucose POC Glucose 185 H 199 H 206 H Calcium PG Care Time/CCT Total # of Minutes Spent Total Time Spent with Patient: Total time spent is greater than 50% in coordination of care (as documented) at patient's floor/unit and/or counseling patient: (1) Hematuria Hematuria type: gross Qualified Code(s): R31.0 - Gross hematuria (2) Type II diabetes mellitus Diabetes mellitus complication status: without complication Diabetes mellitus intermediate insulin use: with intermediate use Qualified Code(s): E11.9 - Type 2 diabetes mellitus without complications; Z79.4 - residential (current) use of insulin (3) Cirrhosis Hepatic cirrhosis type: other cirrhosis Qualified Code(s): K74.69 - Other cirrhosis of liver (4) COPD (chronic obstructive pulmonary disease) COPD type: unspecified COPD Qualified Code(s): J44.9 - Chronic obstructive pulmonary disease, unspecified
[2019-03-16 06:26] LABS: Hematocrit (blood only) 32.9 % (42-52); Hemoglobin 11.8 g/dL (14.0-18.0); Mean Corpuscular Hemoglobin 32.2 pg (25-34); Mean Corpuscular Hgb Conc 35.9 g/dL (32-36); Mean Corpuscular Volume 89.9 fL (80-100); Mean Platelet Volume 12.5 fL (7.4-10.4); Platelet Count 23 K/uL (130-400); RDW Coefficient of Variation 14.6 % (11.5-14.5); RDW Standard Deviation 48.7 fL (36.4-46.3); Red Blood Count 3.66 M/uL (4.7-6.1); White Blood Count 6.17 K/uL (4.8-10.8)
[2019-03-16 06:43] LABS: BUN Creatinine Ratio 40.3 (10-20); Calcium 8.4 mg/dl (8.5-10.1); Creatinine Clr Calc Pharmacy 82.4 ml/min; Est GFR (African American) 105.3; Est GFR (Non-African American) 90.8; Potassium 4.2 mmol/L (3.5-5.1)
[2019-03-16] MEDS: SERTRALINE HCL 50 MG TABLET PO SCH (08:33)
[2019-03-16] MEDS: AMOXICILLIN 500 MG CAP PO SCH ×3 (08:33→17:59)
[2019-03-16] MEDS: FLUTICASONE/SALMETEROL 250/50 (ADVAIR) 14 PUFF/1 INHALER INH SCH ×2 (08:34→21:08)
[2019-03-16] MEDS: INSULIN GLARGINE SOLOSTAR 100 UNITS/ML 3 ML PEN SQ SCH (08:34)
[2019-03-16] MEDS: IPRATROPIUM BROMIDE/ALBUTEROL respimat INH INH SCH ×4 (08:34→21:08)
[2019-03-16] MEDS: INSULIN ASPART 100 UNITS/ML 3 ML PEN SC SCH ×4 (08:35→21:46)
--- NOTE | 2019-03-16 12:32 | Progress Note ---
DATE: 03/16/2019 HEMATOLOGY PROGRESS NOTE DIAGNOSES: 1. 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 2. Leukopenia/anemia. 3. Hematuria. 4. Type 2 diabetes mellitus. 5. Chronic indwelling Rosales catheter, suspect enterococcal urinary tract infection. SUBJECTIVE: Ramos was seen and examined at bedside. He was somewhat lethargic, I think a little bit confused as well, stating he was going to be "transferred." Nursing believes he was referencing discussion yesterday about possible discharge. I spoke to Dr. Alvarez informally and collectively decided to have Mr. Darnell remaining with us considering his platelet count has not responded to high-dose dexamethasone. He has responded to platelet transfusion in the past, which has also been consistent with ITP. At some point, bone marrow biopsy and aspiration needs to be done as I suspect he may have an underlying myelodysplasia. Mr. Darnell has no overt complaints. Nursing reports no overnight difficulties otherwise. OBJECTIVE: GENERAL: A very pleasant 79-year-old gentleman in no acute distress. VITAL SIGNS: Temperature 36.5, pulse 70, respiratory rate 18, blood pressure 117/65. SKIN: Without rash or lesion. No abundance of petechiae or ecchymosis otherwise. HEENT: Oral mucosa clear. NECK: Supple. Trachea in midline. HEART: Regular rate and rhythm. LUNGS: Clear to auscultation. ABDOMEN: Bowel sounds are active, soft, nontender. EXTREMITIES: No clubbing, cyanosis or edema. NEUROLOGIC: Grossly intact. LABORATORY DATA: WBC count 6170, hemoglobin 11.8, platelet count 23,000. Sodium 140, potassium 4.2, chloride 107, carbon dioxide 28, creatinine 0.68, BUN 28. IMPRESSION: 1. Enterococcal urinary tract infection. 2. 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 3. Leukopenia/anemia. 4. Type 2 diabetes mellitus. 5. Hematuria. PLAN: As Dr. Alvarez previously stated, if he begins to bleed again, I would proceed with transfusion of a unit of single donor plateletpheresis. At some point, if he remains with us into next week, I may consider doing bone marrow biopsy and aspiration while he is here. Ideally, I would have liked to have him back in the office and perform the procedure as an outpatient. Apparently, he has a significant renal lithiasis and may need operative manipulation at some point. He voices no discomfort or concerns today. We will continue to monitor his counts on a daily basis. I would consider going forward with intravenous immunoglobulin; however, there is a national shortage at the present time.
--- NOTE | 2019-03-16 20:55 | Hospitalist Progress Note ---
Date of Service March 16, 2019 Assessment & Plan (1) Thrombocytopenia: Level has been low 20s for 4 days in a row. s/p 1 unit platelets this admission. s/p 4 days of high dose decadron 40mg daily. Despite such he has had minimal response with his platelet count. He ultimately will need a bone marrow bx as an outpatient. Fortunately the gross hematuria appears to be resolving. H/H are stable as well. Thus, will defer on additional platelet infusion UNLESS HE HAS RECURRENT BLEEDING OR ACUTE BLOOD LOSS ANEMIA. Recheck cbc in am. (2) Enterococcus UTI: day #2 of amox 500mg TID x 7 days. this would be considered a WILLIS-CATHETER associated UTI (complicated UTI). culture was from [facility] (3) Bladder stones: CT abd/pelvis with several kidney stones (none of which are obstructing) and several bladder stones. the presence of the latter in the setting of severely low platelets and possible UTI will make the hematuria issue an ongoing one. poor candidate for Rx of stones. consider urology consult if bleeding was to worsen. at minimum will refer to urology as outpatient. (4) Chronic ITP (idiopathic thrombocytopenia): Had been lost to follow up in the previous 1-[address] Reyes did some investigation and found he had seen 2 other providers outside of the [place] area for his hematological issues. Regardless patient needs to be linked back in for regular follow-up and ongoing treatment. s/p 1 unit of platelets this admit. s/p 4-day course of high-dose decadron 40mg daily. despite such platelets have not responded that well. remain in low 20s. CBC am. (5) Hematuria: Has had gross hematuria in the setting of the low platelets, possible UTI, bladder stones, etc. Hematuria resolved then recurred. See above discussion re: stones. The hematuria is finally improving and H/H are stable. If hematuria is fully resolved tomorrow can likely d/c back to SNF in am. Recommend f/u after discharge. (6) Acute blood loss anemia: 2nd to gross hematuria. H/H cont to remain stable over last 2-3 days, however. CBC am for stability once again. (7) Pancytopenia: Recent b12/folate wnl. TSH wnl. Pt has cirrhosis which can contribute to pancytopenia. Agree with Dr Reyes that in light of the severity of the platelet count he needs bone marrow bx to r/o other marrow-based malignancies, etc. CBC in am for stability. (8) Type II diabetes mellitus: control improved and acceptable since steroids are done will: 1. stop HS lantus 2. lower novolog correction to 45 and carb ratio to 1:15 3. lower AM lantus back to 15 units (9) Chronic indwelling Willis catheter: suspect due to neurogenic bladder the willis was last replaced at [facility] on 02/25/19 leave as is - risk of replacement with platelet count of 20 could cause trauma and further bleeding (10) COPD (chronic obstructive pulmonary disease): cont combivent cont advair BID IMPROVED wheezing over last 24 hours with decadron and advair (11) Cirrhosis: cause? currently compensated resume BB if blood pressure will allow pt reports he was dx in the last year- due to SEGURA? CT abd/pelvis with cirrhotic appearing liver (12) Left-sided weakness: by history likely due to prior cervical spine injury (fell off ladder 1 year ago, by report, requiring hospitalization at [facility]) (13) Kidney stones: as seen on CT nonobstructing no Rx needed at this time (14) DVT prophylaxis: chemical means contraindicated SCDs for now attempted to call pt's at # listed in chair - no answer, could not leave message attempted on 03/13 and 03/14 staff have not heard from by phone either they live together at [facility] in [place] will return to [facility] at d/c possible d/c tomorrow if no hematuria Subjective pt w/o complaints still eating well willis with slightly blood-tinged urine but much improved from previous cough improved Review of Systems Constitutional: no fever and no chills Respiratory: no sputum production Cardiovascular: no chest pain Gastrointestinal: no abdominal pain, no nausea and no vomiting Physical Exam Constitutional: no acute distress ENMT: external ear and nose normal, oropharynx normal Respiratory: + cough; no respiratory distress Auscultation: no crackles and no wheezes Cardiovascular: Rate/Rhythm: regular rate and regular rhythm Heart Sounds: normal S1 and normal S2; no murmur Vessels: posterior tibial pulses present and dorsalis pedis pulses present; no JVD Extremities: no edema Gastrointestinal (Abdomen): normal bowel sounds, soft, nontender, no hepatosplenomegaly Skin: mild petechiae of legs, feet, arms Psychiatric: A+Ox3, euthymic affect Results & Data Vital Signs (Past 12 Hours) Vital Signs Temp Pulse Resp BP Pulse Ox 03/16/19 18:58 36.7 C 64 19 120/64 97 03/16/19 15:14 36.5 C 72 20 136/66 94 Laboratory Results Laboratory Results - last 24 hr 03/16/19 03/16/19 03/16/19 05:50 05:50 07:56 WBC 6.17 RBC 3.66 L Hgb 11.8 L Hct 32.9 L MCV 89.9 MCH 32.2 MCHC 35.9 RDW Std Deviation 48.7 H RDW Coeff of Mary Anne 14.6 H Plt Count 23 L* MPV 12.5 H Sodium 140 Potassium 4.2 Chloride 107 Carbon Dioxide 28 Anion Gap 5.0 BUN 28 H Creatinine 0.68 Est Cr Clr Drug Dosing 82.4 Est GFR ( Amer) 105.3 Est GFR (Non-Af Amer) 90.8 BUN/Creatinine Ratio 40.3 H Glucose 121 H POC Glucose 121 H Calcium 8.4 L 03/16/19 03/16/19 03/16/19 11:59 16:47 20:33 WBC RBC Hgb Hct MCV MCH MCHC RDW Std Deviation RDW Coeff of Mary Anne Plt Count MPV Sodium Potassium Chloride Carbon Dioxide Anion Gap BUN Creatinine Est Cr Clr Drug Dosing Est GFR ( Amer) Est GFR (Non-Af Amer) BUN/Creatinine Ratio Glucose POC Glucose 167 H 139 H 66 L* Calcium PG Care Time/CCT Total # of Minutes Spent Total Time Spent with Patient: Total time spent is greater than 50% in coordination of care (as documented) at patient's floor/unit and/or counseling patient: (1) Hematuria Hematuria type: gross Qualified Code(s): R31.0 - Gross hematuria (2) Type II diabetes mellitus Diabetes mellitus quantitative developer insulin use: with quantitative developer use Diabetes mellitus complication status: without complication Qualified Code(s): E11.9 - Type 2 diabetes mellitus without complications; Z79.4 - chief physical therapist (current) use of insulin (3) COPD (chronic obstructive pulmonary disease) COPD type: unspecified COPD Qualified Code(s): J44.9 - Chronic obstructive pulmonary disease, unspecified (4) Cirrhosis Hepatic cirrhosis type: other cirrhosis Qualified Code(s): K74.69 - Other cirrhosis of liver
[2019-03-17 06:40] LABS: Hematocrit (blood only) 32.9 % (42-52); Mean Corpuscular Hemoglobin 32.8 pg (25-34); Mean Corpuscular Hgb Conc 36.5 g/dL (32-36); Mean Corpuscular Volume 89.9 fL (80-100); Mean Platelet Volume 11.3 fL (7.4-10.4); Platelet Count 25 K/uL (130-400); RDW Coefficient of Variation 14.8 % (11.5-14.5); RDW Standard Deviation 48.7 fL (36.4-46.3); Red Blood Count 3.66 M/uL (4.7-6.1); White Blood Count 5.07 K/uL (4.8-10.8)
[2019-03-17 06:45] LABS: Calcium 8.3 mg/dl (8.5-10.1); Creatinine Clr Calc Pharmacy 98.2 ml/min; Est GFR (African American) 113.2; Est GFR (Non-African American) 97.7; Potassium 3.9 mmol/L (3.5-5.1)
[2019-03-17] MEDS: SERTRALINE HCL 50 MG TABLET PO SCH (08:43)
[2019-03-17] MEDS: FLUTICASONE/SALMETEROL 250/50 (ADVAIR) 14 PUFF/1 INHALER INH SCH (08:43)
[2019-03-17] MEDS: AMOXICILLIN 500 MG CAP PO SCH ×3 (08:43→16:51)
[2019-03-17] MEDS: IPRATROPIUM BROMIDE/ALBUTEROL respimat INH INH SCH ×3 (08:43→16:51)
[2019-03-17] MEDS: INSULIN ASPART 100 UNITS/ML 3 ML PEN SC SCH ×3 (08:47→17:49)
[2019-03-17] MEDS ORDERED: INSULIN GLARGINE SOLOSTAR 100 UNITS/ML 3 ML PEN SQ SCH (09:00)
--- NOTE | 2019-03-17 11:33 | CT Scan Report ---
CT head/brain wo con CLINICAL HISTORY: Confusion. Low platelet count. Possible intracranial hemorrhage. COMPARISON STUDY: No previous studies for comparison. TECHNIQUE: Axial CT of the brain is performed from the vertex to the skull base. IV contrast was not administered for this examination. A dose lowering technique was utilized adhering to the principles of ALARA. CT DOSE: 537.48 mGy.cm FINDINGS: No intra or extra-axial mass lesions are visualized. There is no CT evidence of acute cortical infarc tion. There is no evidence of midline shift. There is no acute hemorrhage. No calvarial fractures ar e visualized. There are patchy white matter hypodensities likely on a small vessel basis. There is no evidence of pathologic ventricular dilatation. There are no air-fluid levels to indicate acute sinusitis. There is mild paranasal sinus mucosal thic kening. IMPRESSION: No acute intracranial findings Electronically signed by: Diaz Ortiz M.D. 03/17/2019 11:31 AM
--- NOTE | 2019-03-17 17:39 | Discharge Summary ---
Date of Service date of admission - March 11, 2019 date of discharge - March 17, 2019 Admission HPI Per Admitting Provider 79 y/o male who was transferred from [facility] where he was seen due to hematuria in his chronic willis catheter in the face of ITP with platelet count of 7,000 then later 10,000. Hematuria had been noted by nursing at the nursing facility, [facility], for 24 hours. The patient's vitals were stable upon arrival to [facility]. Apparently he had recently been established with Dr. Reyes at the [facility] earlier this month after being lost to follow up for the ITP. HGB was 12.9 at time of admission. Records show his platelet count was 43 on 03/05/19. Principal Diagnosis Gross Hematuria in the setting of severe thrombocytopenia from ITP Discharge Exam Constitutional no acute distress ENMT external ear and nose normal, oropharynx normal Respiratory + cough; no respiratory distress Auscultation: no crackles and no wheezes Cardiovascular Rate/Rhythm: regular rate and regular rhythm Heart Sounds: normal S1 and normal S2; no murmur Vessels: posterior tibial pulses present and dorsalis pedis pulses present; no JVD Extremities: no edema Gastrointestinal (Abdomen) normal bowel sounds, soft, nontender, no hepatosplenomegaly Skin petechiae of feet, legs, arms Neurologic left arm weakness with atrophy of muscles Psychiatric Orientation: alert, oriented to person, oriented to place (knows he is hospital but thought it was [place]) and oriented to time Affect: + depressed affect Discharge Data Allergies Allergy/AdvReac Type Severity Reaction Status Date / Time No Known Allergies Allergy Unverified 03/12/19 01:05 Consultations hematology/oncology - Antonio Reyes DO PT, OT Ordered Studies 1. CT abd/pelvis: IMPRESSION: 1. Urinary bladder decompressed with a Willis catheter. Multiple bladder calculi. These could account for the presence of hematuria. Evaluation for bladder neoplasm cannot be made. 2. Multiple layering nonobstructing calculi in the right renal pelvis and suspected punctate nonobstructing left renal calculus. 3. No hydroureteronephrosis. 4. Suspected cirrhosis. 5. Stercoral colitis. Disimpaction to be considered. 6. Age-indeterminate moderate compression fracture of L1. Correlate with point tenderness. 7. Trace left pleural effusion and left basilar atelectasis. 2. CT head: FINDINGS: No intra or extra-axial mass lesions are visualized. There is no CT evidence of acute cortical infarction. There is no evidence of midline shift. There is no acute hemorrhage. No calvarial fractures are visualized. There are patchy white matter hypodensities likely on a small vessel basis. There is no evidence of pathologic ventricular dilatation. There are no air-fluid levels to indicate acute sinusitis. There is mild paranasal sinus mucosal thickening. IMPRESSION: No acute intracranial findings 3. Platelet infusion x 1 unit Hospital Course (1) Thrombocytopenia: Presenting platelet count was 9. He had mild, active gross hematuria upon arrival to [facility]. He received 1 unit platelets with improvement in the platelet count to the low 20s. Dr Antonio Reyes from hematology saw him in consult and advised a course of 4 days of high-dose decadron 40mg daily. He completed this in entirety. Despite such he had minimal response with his platelet count. Platelet count remained 20-25 for several days prior to discharge. He ultimately will need a bone marrow biopsy as an outpatient by Dr Reyes as his other cell lines have also been low intermittently. Fortunately the gross hematuria DID resolve prior to discharge. Discharge hemoglobin was 12. Would defer on additional platelet infusions UNLESS HE HAS RECURRENT BLEEDING OR ACUTE BLOOD LOSS ANEMIA. He has scheduled follow-up in the [facility] at [facility] on 03/19/2019. Surveillance CBCs will be needed - frequency to be determined. (2) Chronic ITP (idiopathic thrombocytopenia): Had been lost to follow up in the previous 1-[address] Reyes did some investigation and found he had seen 2 other providers outside of the [place] area for his hematological issues. Regardless patient needs to be linked back in for regular follow-up and ongoing treatment. s/p 1 unit of platelets this admission. s/p 4-day course of high-dose decadron 40mg daily. Despite such his platelets did not respond that well as his platelet count only remained in the low 20s. Discharge platelet count was 25. (3) Hematuria: Has had gross hematuria in the setting of the low platelets, possible UTI, bladder stones, etc. Hematuria resolved then recurred several times during the stay. Fortunately he did NOT have hematuria for the 48 hours prior to discharge. The bladder stones in the setting of severe thrombocytopenia will make him VERY susceptible to spontaneous bleeding. He is a very poor candidate for intervention of the bladder stones. With that said would [facility]. (4) Enterococcus UTI: Urine culture sent from the ER at [facility] in [place] grew enterococcus. This would be considered a WILLIS-CATHETER associated UTI (complicated UTI). He was initiated on amoxicillin 500mg TID. Received 2 days while hospitalized. Recommend 8 more days after discharge. Certainly the UTI could have been contributing to platelet count depression as well as gross hematuria. (5) Bladder stones: CT abd/pelvis with several kidney stones (none of which are obstructing) and several bladder stones. The presence of the latter in the setting of severely low platelets and possible UTI will make the hematuria issue an ongoing one. Poor candidate for Rx of stones. At minimum recommend referral to [facility] urology as outpatient. (6) Acute blood loss anemia: 2nd to gross hematuria. Hb at outside hospital was 12.9. Lowest Hb here was 11.4. (7) Pancytopenia: Recent b12/folate wnl. TSH wnl. Pt has cirrhosis which can contribute to pancytopenia. Agree with Dr Reyes that in light of the severity of the platelet count he needs bone marrow biopsy to r/o other marrow-based malignancies, etc. (8) Type II diabetes mellitus: Needed significant adjustments in his insulin regimen due to high-dose steroid use while hospitalized. At discharge, however, recommend cutting back his Toujeo to 10 units once daily. (9) Chronic indwelling Willis catheter: suspect due to neurogenic bladder (from prior head/cervical spine trauma ??). the willis was last replaced at [facility] on 02/25/19. would be due for exchange around 03/27/19. risk of replacement with platelet count of 20 or less could cause trauma and further bleeding thus EXCHANGE WITH CAUTION. (10) COPD (chronic obstructive pulmonary disease): ADDED both combivent QID and advair BID. He had significantly IMPROVED wheezing with these additions as well as the high- dose steroids that were used for the platelet issue. Continue combivent and advair at [facility]. (11) Cirrhosis: Cause? Currently compensated. Resume nadalol as an outpatient if blood pressure will allow. Patient reports he was diagnosed in the last year- due to SEGURA? CT abd/pelvis with cirrhotic appearing liver. Ammonia level was 37 (scantly elevated). Patient has severe constipation at baseline thus would treat the constipation and elevated ammonia level with daily lactulose. (12) Left-sided weakness: Chronic. Suspect due to prior cervical spine injury (fell off ladder 1 year ago, by report, requiring hospitalization at [facility]). reports he has been bed-bound for 6-12 months (does transfer to chair/wheelchair, however). (13) Kidney stones: as seen on CT nonobstructing no Rx needed at this time (14) Fecal impaction: resolved. continue bowel regimen upon return to [facility]. (15) Cognitive decline: reports cognitive impairment/decline over the last year or two. He had intermittent slight confusion while hospitalized. CT head did not show old/new stroke or other abnormalities. Although the ammonia level was slightly above the normal range he did not have asterixis or other signs of hepatic encephalopathy. There could be some underlying depression as well. Follow-up advised. Total Time Total Time Spent Total Time Spent (In Minutes): 45 Total Time Includes: Examination of the Patient, Discharge Planning, Medication Reconciliation and Communication With Other Providers Discharge Plan Discharge Items Patient Disposition: Transfer Alf Fac Reason For Visit: HEMATURIA,LOW PLATELETS Discharge Diagnosis: 1. enterococcal UTI - resolving 2. gross hematuria - resolved, likely due to combination of low platelets, UTI, and bladder stones as seen on CT scan of abd/pelvis 3. ITP - admission platelet count 9; discharge platelet count 25 4. cirrhosis of liver - chronic, uncertain cause 5. prior cervical spine injury with resulting left sided weakness (chronic) 6. failure to thrive/weight loss - chronic 7. CT scan with bladder stones and kidney stones Goals: 1. improve platelet count 2. treat UTI 3. resolve the hematuria Activity: Resume your previous activity Non-emergency contact: Primary Care Provider and Oncologist Call non-emergency contact if: you have any medication questions, your symptoms worsen, your pain is not controlled, your pain is worsening, your pain is unusual for you, your pain is concerning for you and you have a fever Follow-up/Referrals: Hubert Bowers MD [Physician] - (see Dr Bowers, [facility] (or one of his PAs) - within 2 weeks; diagnosis - bladder stones, hematuria.) Antonio Reyes DO [Physician] - 03/19/19 1:10 pm (Please, follow up at Dr. Reyes's office with Alejandra NORWOOD on MondayMarch 19 at 1:10 pm. *If you need to change this appointment, call their office at [phone].) Diet: Carb Consistent or DM2 Diet Texture: Dental soft (bite-sized) Addtl Attending Provider Instructions: 1. check fingerstick blood sugars before meals and at bedtime. 2. patient should be upright for ALL MEALS due to increased aspiration risk. 3. continue willis catheter; this is due to be changed on 03/24/2019. 4. strongly consider counseling or pastoral support for depression. 5. IT IS VERY IMPORTANT FOR THE PATIENT TO SEE THE [facility] ON 03/19/19 SCHEDULED (SEE SEPARATE SECTION). PATIENT MAY NEED BONE MARROW BIOPSY DURING THAT VISIT. 6. Patient should see Surface Supervisor of April Mendez within 48 hours. 7. Patient may have intermittent gross hematuria from willis due to a variety of reasons. Please contact the Surface Supervisor of [place] Mendez if there is any significant bleeding. 8. Discharge platelet count is 25. Discharge WBC count is 5. Discharge Hemoglobin is 12 (unchanged over 5 days despite occasional hematuria). Follow-up -- see separate section. Return to any hospital if -- * there are fevers over 100.5 degrees * there is significant abdominal pain * there is chest pain or shortness of breath * there is severe gross hematuria * any other concerns Pending Studies at Discharge: No Stand-Alone Forms: My [facility] Skilled Items Patient informed of condition?: Yes DNR: Yes Discharge Level of Care: Skilled Communicable Disease: No Discharge Prognosis: Stable Lines: None Urinary Catheter: Yes Medications and DC Order Prescriptions: New amoxicillin 500 mg Capsule 500 mg PO TIDM 8 Days Qty: 24 RF: 0 fluticasone propion-salmeterol [Advair Diskus] 250-50 mcg/dose Blister With Device 1 puff inhalation BID Qty: 1 RF: 11 ipratropium-albuterol 0.5 mg-3 mg(2.5 mg base)/3 mL Solution For Nebulization 3 ml NEB Q4R PRN (Reason: shortness of breath or wheezing) Qty: 1 RF: 2 Combivent Respimat 20-100 mcg/actuation Mist 1 puff inhalation QID Qty: 1 RF: 11 Boost Glucose Control 0.06-1.1 gram-kcal/mL liquid 1 ea PO BIDM Qty: 237 RF: 11 lactulose 10 gram/15 mL solution 10 gm PO DAILY Qty: 500 RF: 2 Continued ranitidine HCl 150 mg Capsule 150 mg PO BID RF: 0 sertraline 50 mg Tablet 50 mg PO DAILY RF: 0 Therapeutic-M 9 mg iron-400 mcg Tablet 1 tab PO DAILY RF: 0 Changed Toujeo Max U-300 SoloStar 300 unit/mL (3 mL) Insulin Pen 10 unit SUBCUT DAILY Qty: 1 RF: 5 Discontinued nadolol 20 mg Tablet 10 mg PO DAILY RF: 0 trimethoprim 100 mg Tablet 100 mg PO DAILY RF: 0 docusate sodium [Colace] 100 mg Capsule 100 mg PO BID RF: 0 polyethylene glycol 3350 [Miralax] 17 gram/dose Powder 17 g PO DAILY RF: 0 Discharge Orders: Discharge Order (Routine); Ordered 03/17/19 Ordered By: Dave Alvarez Admission Data Admit Date/Time: 03/12/19 16:38 Attending Provider: Dave Alvarez Admit Provider: Tyler Ness Primary Care Provider: Kris Hampton Other Providers: Antonio Reyes V Other Interventions: Discharge Summary Assessment (RN) Last Done: 03/17/19 15:21 DC Date/Time DO NOT enter until pt leaves facility: 03/17/19 19:51
== END 2019-03-17 19:51 | DRG 813 ==
LOC: 4W → SUATTDRO 21:14